=== PATIENT | male | born 1965 | race Caucasian/White ===

== ENCOUNTER 2022-05-31 20:53 | Inpatient (IN) | payer MEDICAID ==
[~2022-05-31] VITALS: Ht 162.6 cm; Wt 104.3 kg
[2022-05-31 21:02] VITALS: BP_SYST 146
--- NOTE | 2022-05-31 21:25 | NUR ---
COVID SWAB SENT TO LAB.
[2022-05-31 21:54] LABS: BASOPHILS % (AUTO) 0.3 % (0.0-2.0)
[2022-05-31 22:00] LABS: BASOPHILS # (AUTO) 0.1 K/uL (0.0-0.2); HEMATOCRIT 45.5 % (36-54); LYMPHOCYTES % (AUTO) 10.9 % (20.5-51.5); MEAN CORPUSCULAR VOLUME 90 fL (79.0-98.0); MONOCYTES # (AUTO) 0.8 K/uL (0.0-1.0); MONOCYTES % (AUTO) 4.5 % (1.7-9.3); NEUTROPHILS # (AUTO) 15.2 K/uL (1.8-7.7); NEUTROPHILS % (AUTO) 84.3 % (40.0-70.0); PLATELET COUNT (AUTO) 145 K/uL (130-430); RED BLOOD CELL COUNT(AUTO) 5.07 MIL/uL (4.2-6.2); RED CELL DISTRIBUTION WIDTH 15.8 % (9.0-15.0); WHITE BLOOD COUNT (AUTO) 18.1 K/uL (4.8-10.8)
[2022-05-31 22:04] LABS: ANION GAP 9 (5-15); CALCIUM 9.2 mg/dL (8.4-11.0); CHLORIDE 97 mmol/L (98-107); CREATININE 1.24 mg/dL (0.55-1.30); GLUCOSE 257 mg/dL (70-99); POTASSIUM 3.6 mmol/L (3.5-5.1); SODIUM SERUM 132 mmol/L (136-145); UREA NITROGEN, BLOOD 11 mg/dL (8-21)
[2022-05-31 22:13] LABS: ALANINE AMINOTRANSFERASE 80 U/L (12-78); ALBUMIN 3.3 g/dL (3.4-4.8); ASPARTATE AMINOTRANSFERASE 53 U/L (10-37); GFR AFRICAN AMERICAN 78 mL/min (>90); TOTAL BILIRUBIN 1.2 mg/dL (0.0-1.0)
[2022-05-31 22:14] LABS: PROTHROMBIN TIME 10.3 SECS (9.5-12.5)
[2022-05-31] MEDS ORDERED: cefTRIAXone 1 GM IVPB PREMIX 50 ML IV ONE (22:45)
[2022-05-31] MEDS ORDERED: NACL 0.9% 2,000 ML IV ONE (22:45)
[2022-05-31 23:34] LABS: BILIRUBIN,URINE NEGATIVE (NEGATIVE); BLOOD, URINE 3+ (NEGATIVE); CLARITY/URINE CLOUDY (CLEAR); COLOR,URINE RED (YELLOW); GLUCOSE,URINE 2+ (NEGATIVE); KETONES,URINE 1+ (NEGATIVE); LEUKOCYTE ESTERASE ,URINE 1+ (NEGATIVE); NITRITE, URINE POSITIVE (NEGATIVE); PROTEIN URINE 3+ (NEGATIVE)
[2022-05-31 23:44] LABS: RBC,URINE >100 /HPF (0-3)
[2022-05-31 23:45] LABS: BACTERIA,URINE MANY /HPF (None Seen)
[2022-05-31 23:46] LABS: MUCUS,URINE None Seen /LPF (None Seen)
[2022-06-01] MEDS ORDERED: D5/0.45 NS 1,000 ML IV SCH (00:30)
--- NOTE | 2022-06-01 00:36 | NUR ---
ADMIT BED Admit bed requested Patient will be admitted to care of . Admitted to unit. Diagnosis Inpatient (Yes or No) Observation (Yes or No) Orientation concerns or request close to nursing station (Yes or No) Covid Status On vent or bipap Isolation requirements Needs a sitter From Home (Yes or if No enter name of facility) Requires Dialysis (Yes or No) Med Rec Completed (Yes of No)
--- NOTE | 2022-06-01 05:00 | NUR ---
Admission Note Received patient from ER with diagnosis of UROSEPSIS. Initial Plan of Care discussed-patient verbalized understanding. Oriented to room, call light, pain management and safety.
[2022-06-01 05:48] VITALS: BP_SYST 113
[2022-06-01] MEDS ORDERED: NALOXONE HCL 0.4 MG/ML AMP (NARCAN) IVP PRN ×2 (06:30)
[2022-06-01] MEDS ORDERED: ACETAMINOPHEN 325 MG TABLET PO PRN ×2 (06:30→06:45)
[2022-06-01] MEDS ORDERED: HYDROcodone/ACETAMIN 5-325 MG TAB (NORCO/ VICODIN) PO PRN (06:30)
[2022-06-01] MEDS ORDERED: ONDANSETRON HCL 4 MG/2 ML VIAL IVP PRN (06:30)
[2022-06-01] MEDS ORDERED: HYDROcodone/ACETAMIN 10-325 MG TAB PO PRN (06:30)
--- NOTE | 2022-06-01 06:37 | NUR ---
CONSULTATION PAGED REASON FOR CONSULTATION:UTI WAS CONSULT CALLED?Y PERSON WHO WAS NOTIFIED:WEI CONSULTING PHYSICIAN:TRAMAINE BURTON ASSISTANT SPEECH LANGUAGE PATHOLOGIST SPECIALTY:INFECTIOUS DISEASE ASSISTANT SPEECH LANGUAGE PATHOLOGIST PHONE NUMBER:[phone] REQUESTING PHYSICIAN:MARTA NUNEZ
--- NOTE | 2022-06-01 07:35 | NUR ---
CLOSING NOTES Patient resting in bed - no s/s pain or distress noted. Respirations even and unlabored - head of bed elevated. IV site patent - no s/s redness infection or infiltration. Bed locked and in lowest position. Call light within reach bed alarm on.
[2022-06-01 08:00] VITALS: BP_SYST 156
[2022-06-01 08:43] LABS: BASOPHILS # (AUTO) 0.1 K/uL (0.0-0.2); BASOPHILS % (AUTO) 0.4 % (0.0-2.0); EOSINOPHILS % (AUTO) 0.2 % (0.0-4.0); HEMATOCRIT 41.8 % (36-54); LYMPHOCYTES # (AUTO) 2.2 K/uL (1.0-5.5); LYMPHOCYTES % (AUTO) 19.2 % (20.5-51.5); MEAN CORPUSCULAR VOLUME 90 fL (79.0-98.0); MONOCYTES # (AUTO) 0.7 K/uL (0.0-1.0); MONOCYTES % (AUTO) 5.7 % (1.7-9.3); NEUTROPHILS # (AUTO) 8.6 K/uL (1.8-7.7); NEUTROPHILS % (AUTO) 74.5 % (40.0-70.0); PLATELET COUNT (AUTO) 120 K/uL (130-430); RED BLOOD CELL COUNT(AUTO) 4.65 MIL/uL (4.2-6.2); WHITE BLOOD COUNT (AUTO) 11.5 K/uL (4.8-10.8)
[2022-06-01] MEDS ORDERED: METF-518 PO (08:53)
[2022-06-01] MEDS ORDERED: LINA5TAB2 PO (08:54)
[2022-06-01 08:56] LABS: CALCIUM 8.4 mg/dL (8.4-11.0); CREATININE 1.11 mg/dL (0.55-1.30); POTASSIUM 3.9 mmol/L (3.5-5.1)
[2022-06-01] MEDS ORDERED: BENA1TAB19 PO (08:56)
[2022-06-01] MEDS ORDERED: LIP20 PO (08:57)
--- NOTE | 2022-06-01 10:39 | NUR ---
CONSULTATION PAGED REASON FOR CONSULTATION:TRANSAMINITIS WAS CONSULT CALLED?Y PERSON WHO WAS NOTIFIED:ARNALDO CONSULTING PHYSICIAN:MAXX WALDEN (RIVERA DUGGAN ADAM DEWATERING FILTERING SUPERVISOR) ESTATE PLANNER SPECIALTY:GI ESTATE PLANNER PHONE NUMBER:[phone] REQUESTING PHYSICIAN:MARTA NUNEZ
[2022-06-01] MEDS: INSULIN REGULAR, HUMAN 100 UNITS/ML, 10 ML VIAL (humuLIN R) SUBCUT PRN ×3 (10:46→22:15)
[2022-06-01 11:34] LABS: ALBUMIN 2.8 g/dL (3.4-4.8); BILIRUBIN,DIRECT 0.4 mg/dL (0.0-0.3); TOTAL BILIRUBIN 1.4 mg/dL (0.0-1.0)
[2022-06-01 12:00] VITALS: BP_SYST 140
[2022-06-01] MEDS ORDERED: LISINOPRIL 10 MG TABLET (PRINIVIL) PO ONE (13:00)
[2022-06-01] MEDS ORDERED: HYDROCHLOROTHIAZIDE 12.5 MG CAPSULE (HCTZ) PO ONE (13:00)
[2022-06-01] MEDS: NORMAL SALINE 5 ML DISP.SYRIN IVF SCH ×2 (15:11→22:00)
[2022-06-01 16:20] VITALS: BP_SYST 146
--- NOTE | 2022-06-01 18:00 | NUR ---
A/Ox4,afebrile,vss,resting in bed,incontinent of pinkish urine,trisha care rendered,diaper changed,needs attended,call light & personal items within pt reach,safety maintained continue to monitor pt.
--- NOTE | 2022-06-01 20:00 | NUR ---
Recieved pt from AM nurse. Pt is aox4, parapelegic, skin intact, with discoloration on buttocks. Lungs are clear, BGL elevated t 322, bowel sounds present. Pt denies pain. Pt has US abd completed while performing primary assessment. Pt incontinent, and has had a BM on 06/01. Will continue to monitor pt VS and BGL. bed locked in lowest position with call light in reach.
[2022-06-01] MEDS: cefTRIAXone 1 GM IVPB PREMIX 50 ML IV SCH (20:58)
[2022-06-01] MEDS: ATORVASTATIN 20 MG TABLET PO SCH (20:58)
[2022-06-01] MEDS ORDERED: metFORMIN HCL 500 MG TABLET ONE (20:59)
[2022-06-01 21:21] VITALS: BP_SYST 100
[2022-06-01 21:25] VITALS: BP_SYST 100
[2022-06-02] VITALS: BP_SYST 98
[2022-06-02] MEDS: INSULIN REGULAR, HUMAN 100 UNITS/ML, 10 ML VIAL (humuLIN R) SUBCUT PRN ×4 (06:21→20:40)
[2022-06-02] MEDS: NORMAL SALINE 5 ML DISP.SYRIN IVF SCH ×3 (06:22→21:54)
[2022-06-02 06:46] LABS: BASOPHILS % (AUTO) 0.3 % (0.0-2.0); EOSINOPHILS # (AUTO) 0.1 K/uL (0.0-0.4); EOSINOPHILS % (AUTO) 1.1 % (0.0-4.0); HEMATOCRIT 38.5 % (36-54); LYMPHOCYTES # (AUTO) 1.4 K/uL (1.0-5.5); LYMPHOCYTES % (AUTO) 19.3 % (20.5-51.5); MEAN CORPUSCULAR VOLUME 91 fL (79.0-98.0); MONOCYTES # (AUTO) 0.5 K/uL (0.0-1.0); MONOCYTES % (AUTO) 6.8 % (1.7-9.3); NEUTROPHILS # (AUTO) 5.3 K/uL (1.8-7.7); NEUTROPHILS % (AUTO) 72.5 % (40.0-70.0); PLATELET COUNT (AUTO) 107 K/uL (130-430); RED BLOOD CELL COUNT(AUTO) 4.24 MIL/uL (4.2-6.2); WHITE BLOOD COUNT (AUTO) 7.4 K/uL (4.8-10.8)
[2022-06-02 07:45] LABS: ALBUMIN 2.5 g/dL (3.4-4.8); C-REACTIVE PROTEIN QUANT 14.8 mg/dL (0-0.5); CALCIUM 8.4 mg/dL (8.4-11.0); CREATININE 0.94 mg/dL (0.55-1.30); POTASSIUM 3.3 mmol/L (3.5-5.1); TOTAL BILIRUBIN 0.9 mg/dL (0.0-1.0)
[2022-06-02 08:12] LABS: ERYTHROCYTE SEDIMENTATION RATE 59 MM/HR (0-15)
[2022-06-02] MEDS: HYDROCHLOROTHIAZIDE 12.5 MG CAPSULE (HCTZ) PO SCH (08:55)
[2022-06-02] MEDS: LISINOPRIL 10 MG TABLET (PRINIVIL) PO SCH (08:55)
--- NOTE | 2022-06-02 09:26 | NUR ---
CANDELARIO CATH: #16 FR Candelario catheter with 10 cc bulb inserted with use of sterile technique. Bulb inflated with 10 cc sterile water. Immediate return of blood tinged urine noted. Bedside drainage bag placed below level of bladder.Pt tolerated procedure well.
[2022-06-02] MEDS ORDERED: POTASSIUM CHLORIDE 20 MEQ TAB.PRT.SR PO ONE (10:30)
[2022-06-02 12:00] VITALS: BP_SYST 101
[2022-06-02 16:08] VITALS: BP_SYST 100
--- NOTE | 2022-06-02 18:30 | NUR ---
A/Ox4,afebrile,vss,luther catheter drains pinkish red urine by gravity,irrigated with NS every 2 hrs-3 hrs until clear per urology consult order.incontinent of 2 large soft yellow BM,trisha care rendered,sacrum and both buttocks with skin peeling discolorations and wound in right ankle noted.wound care consult requested per protocol needs attended,hourly rounds made,safety maintained,continue to monitor pt.
[2022-06-02 19:44] VITALS: BP_SYST 155
[2022-06-02] MEDS: cefTRIAXone 1 GM IVPB PREMIX 50 ML IV SCH (20:23)
[2022-06-02] MEDS: ATORVASTATIN 20 MG TABLET PO SCH (20:36)
[2022-06-03] VITALS: BP_SYST 135
[2022-06-03] MEDS: INSULIN REGULAR, HUMAN 100 UNITS/ML, 10 ML VIAL (humuLIN R) SUBCUT PRN ×4 (06:01→21:37)
[2022-06-03 06:55] LABS: BASOPHILS % (AUTO) 0.5 % (0.0-2.0); EOSINOPHILS # (AUTO) 0.1 K/uL (0.0-0.4); HEMATOCRIT 37.6 % (36-54); LYMPHOCYTES # (AUTO) 1.7 K/uL (1.0-5.5); LYMPHOCYTES % (AUTO) 27.4 % (20.5-51.5); MEAN CORPUSCULAR VOLUME 90 fL (79.0-98.0); MONOCYTES # (AUTO) 0.7 K/uL (0.0-1.0); MONOCYTES % (AUTO) 10.5 % (1.7-9.3); NEUTROPHILS # (AUTO) 3.7 K/uL (1.8-7.7); NEUTROPHILS % (AUTO) 59.6 % (40.0-70.0); PLATELET COUNT (AUTO) 117 K/uL (130-430); RED BLOOD CELL COUNT(AUTO) 4.18 MIL/uL (4.2-6.2); RED CELL DISTRIBUTION WIDTH 16.3 % (9.0-15.0); WHITE BLOOD COUNT (AUTO) 6.2 K/uL (4.8-10.8)
[2022-06-03 07:07] LABS: C-REACTIVE PROTEIN QUANT 9.2 mg/dL (0-0.5); CREATININE 1.02 mg/dL (0.55-1.30); POTASSIUM 3.3 mmol/L (3.5-5.1)
[2022-06-03 07:20] VITALS: BP_SYST 121
[2022-06-03] MEDS: NORMAL SALINE 5 ML DISP.SYRIN IVF SCH ×2 (07:26→14:22)
--- NOTE | 2022-06-03 07:30 | NUR ---
OPEN NOTE Patient is lying in bed comfortably. No signs of any pain, sob,or any acute distress noted. LAC IV patent and on SL. No s/s any infiltration noted. Patient has Mclaughlin catheter draining to gravity yellow urine. Hand irrigation to be done later. All safety measures in place, side rails up bed locked in lowest position, call light within reach. All needs met at this time, will continue to monitor.
[2022-06-03] MEDS: LISINOPRIL 10 MG TABLET (PRINIVIL) PO SCH (08:32)
[2022-06-03] MEDS: HYDROCHLOROTHIAZIDE 12.5 MG CAPSULE (HCTZ) PO SCH (08:32)
--- NOTE | 2022-06-03 11:30 | NUR ---
IV IV to LAC came out. Re-inserted patient IV to RAC. Patient tolerated well. Patent and on SL.
--- NOTE | 2022-06-03 12:15 | NUR ---
Patient Round Patient is lying in bed comfortably. No signs of any pain, sob,or any acute distress noted. RAC IV patent and on SL. No s/s any infiltration noted. Patient has Mclaughlin catheter draining to gravity yellow urine. All safety measures in place, side rails up bed locked in lowest position, call light within reach. All needs met at this time, will continue to monitor.
[2022-06-03 12:29] LABS: ERYTHROCYTE SEDIMENTATION RATE 59 MM/HR (0-15)
--- NOTE | 2022-06-03 13:30 | NUR ---
ROOM TRANSFER Patient transferred to room 107B
[2022-06-03 13:57] VITALS: BP_SYST 141
[2022-06-03 17:31] VITALS: BP_SYST 119
--- NOTE | 2022-06-03 18:49 | NUR ---
CLOSING NOTE Patient is lying in bed comfortably. No signs of any pain, sob,or any acute distress noted. LAC IV patent and on SL. No s/s any infiltration noted. Patient has Mclaughlin catheter draining to gravity urine. All safety measures in place, side rails up bed locked in lowest position, call light within reach. All needs met at this time, will endorse to [facility] nurse.
[2022-06-03 20:00] VITALS: BP_SYST 136
[2022-06-03] MEDS: ATORVASTATIN 20 MG TABLET PO SCH (21:27)
[2022-06-03] MEDS: cefTRIAXone 1 GM IVPB PREMIX 50 ML IV SCH (21:27)
--- NOTE | 2022-06-03 22:49 | NUR ---
RECEIVED REPORT ON PATIENT FROM QUIN GOMEZ, ASSUMED CARE, AND STARTED ASSESSMENT. PATIENT IS AWAKE, ALERT AND ORIENTED X4. HE IS PLEASANT UPON APPROACH, ANSWERS QUESTIONS APPROPRIATELY, AND IS ABLE TO MAKE HIS NEEDS KNOWN. WILL CONTINUE TO MONITOR AND ASSESS FOR SAFETY AND COMFORT.
[2022-06-04] MEDS: INSULIN REGULAR, HUMAN 100 UNITS/ML, 10 ML VIAL (humuLIN R) SUBCUT PRN ×3 (07:16→17:38)
[2022-06-04 07:23] LABS: BASOPHILS % (AUTO) 0.3 % (0.0-2.0); EOSINOPHILS # (AUTO) 0.1 K/uL (0.0-0.4); LYMPHOCYTES # (AUTO) 1.9 K/uL (1.0-5.5); LYMPHOCYTES % (AUTO) 29.3 % (20.5-51.5); MEAN CORPUSCULAR VOLUME 91 fL (79.0-98.0); MONOCYTES # (AUTO) 0.7 K/uL (0.0-1.0); MONOCYTES % (AUTO) 11.6 % (1.7-9.3); NEUTROPHILS # (AUTO) 3.6 K/uL (1.8-7.7); NEUTROPHILS % (AUTO) 56.8 % (40.0-70.0); PLATELET COUNT (AUTO) 132 K/uL (130-430); RED CELL DISTRIBUTION WIDTH 15.5 % (9.0-15.0); WHITE BLOOD COUNT (AUTO) 6.4 K/uL (4.8-10.8)
[2022-06-04 07:43] LABS: ALBUMIN 2.6 g/dL (3.4-4.8); CALCIUM 9.1 mg/dL (8.4-11.0); POTASSIUM 3.5 mmol/L (3.5-5.1); TOTAL BILIRUBIN 0.7 mg/dL (0.0-1.0)
[2022-06-04 08:30] VITALS: BP_SYST 122
--- NOTE | 2022-06-04 08:30 | NUR ---
REPORT GIVEN TO AMANDA AND CARE WAS TURNED OVER TO HER.
--- NOTE | 2022-06-04 08:40 | NUR ---
Emptied 850mls of clear, straw-colored urine from Mclaughlin drainage bag. Patient stable.
[2022-06-04 09:02] LABS: ERYTHROCYTE SEDIMENTATION RATE 58 MM/HR (0-15)
--- NOTE | 2022-06-04 09:15 | NUR ---
Patient stable with Dr. Mimi Noble at bedside.
[2022-06-04] MEDS: HYDROCHLOROTHIAZIDE 12.5 MG CAPSULE (HCTZ) PO SCH (09:18)
[2022-06-04] MEDS: LISINOPRIL 10 MG TABLET (PRINIVIL) PO SCH (09:19)
--- NOTE | 2022-06-04 09:20 | NUR ---
Scheduled medications given per order. Patient stable; resting comfortably in bed at this time.
[2022-06-04] MEDS ORDERED: SULF1TAB48 PO (09:25)
--- NOTE | 2022-06-04 11:48 | NUR ---
DISCHARGE PLANNING Spoke with pt at bedside, states lives at home with family. Sister is his main caregiver thru [facility]. Pt is Paraplegic and WC bound, needs assist with transfers. Requires min to mod assist with adl's. Has hospital bed, wc, bedside table, & shower chair at home. Uses diapers at home. States was on [facility] then transferred over to home health in January for wound care on legs. Pt had recently finished with home health & dc'd from home health and starting back with [facility]. States wants to dc home with [facility], that they are coming to see him Tuesday. Called & verified with [facility], ph [phone] fax [phone], that pt was discharged from their services May 25 to go under hospice. States if does need home health will be able to accept. Called & spoke with Margie at [facility], ph [phone] fax [phone], states pt is under their services under Palliative Care. Will be able to accept & arrange transportation home, to fax order. Spoke with pt at bedside and states wants to go home under [facility] under Palliative Care. Called & updated Dr Noble and gave ph order. Faxed order/pt info to [facility].
--- NOTE | 2022-06-04 12:00 | NUR ---
Checked blood sugar: 194 mg/dl - will cover per sliding scale. Patient stable at this time. Addendum: 06/04/22 at 1412 by Charo Sr RN [id number]: Covered per sliding scale: 2 units
--- NOTE | 2022-06-04 12:13 | NUR ---
CREDIT REVIEW OFFICER received a referral to see pt. CREDIT REVIEW OFFICER introduced self to pt. at bedside. Pt. was soft spoken, cordial and a good historian. Pt. easily participated in this interview. Pt. stated she had been sober for about 13 years and admits to having a drinking problem. Pt. stated in 1999 he had a DUI and was required to participate in AA. in 2012 pt. stated he stopped drinking, but due to some recent stressors, he started drinking again. The last drink he had was on Tuesday and he drank a 12-pack of beer. In regards to a support system, pt. resides with his sister, has an ex- and daughter. Pt. states he has a friend who encouraged him accompany him to the [facility] in [place]. Pt. stated he likes it because he can be social, active and play games and participate in activities. Pt. utilizes [employer] for transportation. CREDIT REVIEW OFFICER asked if he knew of the [facility] Centers in this area. Pt. did. CREDIT REVIEW OFFICER asked if he has ever been diagnosed with depression. Pt. stated back in about 2016, pt. tried to kill himself by slitting his neck. Pt. stated he has taken anti-depressants for about 6 months time and found them to be helpful. Pt. denied feeling suicidal today or even recently. CREDIT REVIEW OFFICER asked pt. if he would go to see a Psychiatrist for an assessment. If they assess him as being depressed they can prescribe medication. CREDIT REVIEW OFFICER provided pt. with numerous resources including Mental Health Clinics, Substance Abuse and Alcohol Dependancy resources. Pt. thanked CREDIT REVIEW OFFICER and said he would begin to strengthen his support system.
--- NOTE | 2022-06-04 13:45 | NUR ---
Covered per sliding scale. D/C'd telemetry per order. Patient stable at this time. Patient states that his sister can pick him up after 5pm. Will notify CORNELIUS Mchugh.
[2022-06-04 14:44] VITALS: BP_SYST 138
[2022-06-04] MEDS: NORMAL SALINE 5 ML DISP.SYRIN IVF SCH (15:09)
--- NOTE | 2022-06-04 15:10 | NUR ---
Flushed IV per order. Patient resting comfortably in bed with no complaint of any pain. Stable. Addendum: 06/04/22 at 1513 by Charo Sr RN Emptied 450mls of clear, straw-colored urine from Mclaughlin drainage bag.
[2022-06-04 16:35] VITALS: BP_SYST 138
[2022-06-04 17:00] VITALS: BP_SYST 123
--- NOTE | 2022-06-04 17:30 | NUR ---
Checked blood sugar: 157 mg/dl - will cover per sliding scale. Patient stable. Addendum: 06/04/22 at 1803 by Charo Sr RN [id number]: Covered per sliding scale: 2 units.
--- NOTE | 2022-06-04 17:45 | NUR ---
Discharge instructions Both written and verbal discharge instructions given to patient. Encouraged to follow up with Primary Care Physician in 1 week and also follow up with in-network urologist as outpatient. Medication reconciliation given to patient. Advised to retrieve prescribed medication from preferred pharmacy. All questions and concerns were addressed. Patient verbalized understanding. Peripheral IV removed intact with no active bleeding; pressure dressing applied to site. Patient eating dinner at this time. Addendum: 06/04/22 at 1800 by Charo Sr RN Patient will be discharge with Mclaughlin catheter per doctor's order. Instructed how to clean the catheter; also how to empty and measure urine from drainage bag.
--- NOTE | 2022-06-04 18:40 | NUR ---
Discharge Patient taken to vehicle via wheelchair with all belongings. No distress noted at time of discharge.
== END 2022-06-04 17:45 | disposition home or self-care (01) | DRG 720 ==
LOC: SED 20:53 → STU 06-01 00:18
PROVIDERS: ADMIT Preventive Medicine Preventive Medicine/Occupational Environmental Medicine; ATTEND Preventive Medicine Preventive Medicine/Occupational Environmental Medicine
PROC: 0T9B70Z Drainage of Bladder with Drainage Device, Via Natural or Artificial Opening (ICD-10-PCS; principal; 2022-06-01)
DX: A41.9 Sepsis, unspecified organism (principal); E87.2 Acidosis; D69.6 Thrombocytopenia, unspecified; E44.0 Moderate protein-calorie malnutrition; E87.1 Hypo-osmolality and hyponatremia; E88.09 Other disorders of plasma-protein metabolism, not elsewhere classified; G82.20 Paraplegia, unspecified; N39.0 Urinary tract infection, site not specified; F10.20 Alcohol dependence, uncomplicated; I10 Essential (primary) hypertension; B96.20 Unspecified Escherichia coli [E. coli] as the cause of diseases classified elsewhere; B96.89 Other specified bacterial agents as the cause of diseases classified elsewhere; E87.6 Hypokalemia; R74.01 Elevation of levels of liver transaminase levels; R31.9 Hematuria, unspecified; Z20.822 Contact with and (suspected) exposure to COVID-19; E11.65 Type 2 diabetes mellitus with hyperglycemia; E66.9 Obesity, unspecified; Z68.39 Body mass index [BMI] 39.0-39.9, adult
CPT/HCPCS: 36415; 71045; 76376; 76700-TC; 80048; 80053; 80076; 81000; 82962; 83605; 84484; 85025; 85610-TC; 85651-TC; 85730-TC; 86140; 87040; 87086; 93005; 96365; 99291; G0378; J0696; J1815

== ENCOUNTER 2022-06-29 20:14 | Emergency (ER) | payer MEDICAID ==
[~2022-06-29] VITALS: Ht 162.6 cm; Wt 108.9 kg
[~2022-06-29 20:14] MED LIST: BENA1TAB19 PO; LINA5TAB2 PO; LIP20 PO; METF-518 PO; SULF1TAB48 PO
[2022-06-29 20:19] VITALS: BP_SYST 125
--- NOTE | 2022-06-29 20:22 | NUR ---
PATIENT STATES HE IS WHEELCHAIR BOUND AND HAD CANDELARIO PLACED ONE MONTH AGO AFTER HAVING HEMATURIA (F/U WITH UROLOGIST IS 07/02) BUT NOW THE CONNECTION PART FROM CANDELARIO TO BAG IS DISLODGED. NO OTHER COMPLAINTS.
--- NOTE | 2022-06-29 21:50 | NUR ---
Pt had a bm. Pt cleaned and new diaper was put on. pt provided gown and cleen blanket and sheets.
--- NOTE | 2022-06-29 22:30 | NUR ---
# 16 FR Luther catheter with use of sterile technique. Immediate return of 100 cc of urine noted. Bedside drainage bag placed below level of bladder. Urine sample collected and sent to lab. Pt tolerated procedure well. Patient arrived with luther in place, changed due to tubing disconnected at y port. Patient unable to toilet self.
[2022-06-29 22:48] LABS: BILIRUBIN,URINE NEGATIVE (NEGATIVE); BLOOD, URINE 3+ (NEGATIVE); COLOR,URINE YELLOW (YELLOW); GLUCOSE,URINE 1+ (NEGATIVE); KETONES,URINE TRACE (NEGATIVE); LEUKOCYTE ESTERASE ,URINE 3+ (NEGATIVE); NITRITE, URINE NEGATIVE (NEGATIVE); PROTEIN URINE 1+ (NEGATIVE); UROBILINOGEN,URINE 0.2 (0.2-1.0)
[2022-06-29 22:52] LABS: CLARITY/URINE TURBID (CLEAR)
[2022-06-29 23:03] LABS: BACTERIA,URINE FEW /HPF (None Seen)
[2022-06-29 23:04] LABS: MUCUS,URINE None Seen /LPF (None Seen)
--- NOTE | 2022-06-29 23:29 | NUR ---
Patient resting quietly. No acute distress noted. Vital signs within normal range.
[2022-06-30 01:20] LABS: ANION GAP 13 (5-15); CALCIUM 8.1 mg/dL (8.4-11.0); CHLORIDE 97 mmol/L (98-107); CREATININE 1.12 mg/dL (0.55-1.30); GLUCOSE 361 mg/dL (70-99); POTASSIUM 3.7 mmol/L (3.5-5.1); UREA NITROGEN, BLOOD 9 mg/dL (8-21)
[2022-06-30 01:26] LABS: GFR AFRICAN AMERICAN 87 mL/min (>90)
[2022-06-30 01:28] LABS: INR 0.9 (0.80-1.20); PROTHROMBIN TIME 9.8 SECS (9.5-12.5)
[2022-06-30 01:33] LABS: BASOPHILS # (AUTO) 0.2 K/uL (0.0-0.2); EOSINOPHILS % (AUTO) 0.1 % (0.0-4.0); HEMATOCRIT 38.1 % (36-54); HEMOGLOBIN 13.4 g/dL (14.0-18.0); LYMPHOCYTES # (AUTO) 2.1 K/uL (1.0-5.5); LYMPHOCYTES % (AUTO) 31.7 % (20.5-51.5); MEAN CORPUSCULAR HEMOGLOBIN 32 pg (27-31); MEAN CORPUSCULAR HGB CONC 35 % (32-36); MEAN CORPUSCULAR VOLUME 90 fL (79.0-98.0); MONOCYTES # (AUTO) 0.4 K/uL (0.0-1.0); MONOCYTES % (AUTO) 5.7 % (1.7-9.3); NEUTROPHILS # (AUTO) 3.9 K/uL (1.8-7.7); NEUTROPHILS % (AUTO) 59.5 % (40.0-70.0); PLATELET COUNT (AUTO) 124 K/uL (130-430); RED BLOOD CELL COUNT(AUTO) 4.24 MIL/uL (4.2-6.2); RED CELL DISTRIBUTION WIDTH 14.9 % (9.0-15.0); WHITE BLOOD COUNT (AUTO) 6.5 K/uL (4.8-10.8)
[2022-06-30 01:35] LABS: ALANINE AMINOTRANSFERASE 71 U/L (12-78); ALBUMIN 3.2 g/dL (3.4-4.8); ASPARTATE AMINOTRANSFERASE 32 U/L (10-37); TOTAL BILIRUBIN 0.8 mg/dL (0.0-1.0)
--- NOTE | 2022-06-30 01:55 | NUR ---
Patient resting quietly. No acute distress noted. Vital signs within normal range.
--- NOTE | 2022-06-30 02:40 | NUR ---
COVID SWAB SENT TO LAB.
--- NOTE | 2022-06-30 03:31 | NUR ---
Patient resting quietly. No acute distress noted. Vital signs within normal range.
--- NOTE | 2022-06-30 04:40 | NUR ---
Patient resting quietly. No acute distress noted. Vital signs within normal range.
--- NOTE | 2022-06-30 05:36 | NUR ---
Patient resting quietly. No acute distress noted. Vital signs within normal range.
[2022-06-30] MEDS ORDERED: NACL 0.9% 2,000 ML IV ONE (05:45)
[2022-06-30] MEDS ORDERED: cefTRIAXone 1 GM in D5W 50 ML IV ONE (05:45)
[2022-06-30 06:05] VITALS: BP_SYST 135
[2022-06-30] MEDS ORDERED: cefTRIAXone 1 GM VIAL ONE ×2 (06:08)
--- NOTE | 2022-06-30 07:35 | NUR ---
AWAITING PTS FAMILY TO MEDICAL SOCIAL WORKER PT. RESTING QUIETLY
--- NOTE | 2022-06-30 08:25 | NUR ---
PT STATES HE WILL BE CALLING HIS SISTER TO COME GET HIM.
--- NOTE | 2022-06-30 09:40 | NUR ---
SISTER HERE TO MEDICAL TRANSCRIPTIONIST PT. ASSISTED INTO CAR BY STAFF. PT LEFT AMA
== END 2022-06-30 09:40 | disposition left against medical advice (07) ==
LOC: SED 20:14
DX: N39.0 Urinary tract infection, site not specified (principal); R65.21 Severe sepsis with septic shock; R33.9 Retention of urine, unspecified; Z79.899 Other long term (current) drug therapy; Z20.822 Contact with and (suspected) exposure to COVID-19
CPT/HCPCS: 99285; 87426; 80053; 81000; 85025; 85610; 85730; 87040; 87086; 84484; 36415; 83605; 96365; 71045; 93005; J0696

== ENCOUNTER 2022-09-16 21:35 | Inpatient (IN) | payer MEDICAID ==
[~2022-09-16] VITALS: Ht 162.6 cm; Wt 103.9 kg
[2022-09-16 22:00] VITALS: BP_SYST 148
[2022-09-17] MEDS ORDERED: ACETAMINOPHEN 500 MG TABLET PO ONE (02:00)
[2022-09-17] MEDS ORDERED: NACL 0.9% 1,000 ML IV ONE (02:00)
[2022-09-17 02:31] LABS: BASOPHILS % (AUTO) 0.3 % (0.0-2.0); EOSINOPHILS % (AUTO) 0.3 % (0.0-4.0); HEMATOCRIT 46.1 % (36-54); HEMOGLOBIN 15.6 g/dL (14.0-18.0); LYMPHOCYTES # (AUTO) 1.7 K/uL (1.0-5.5); LYMPHOCYTES % (AUTO) 13.5 % (20.5-51.5); MEAN CORPUSCULAR HEMOGLOBIN 30 pg (27-31); MEAN CORPUSCULAR HGB CONC 34 % (32-36); MEAN CORPUSCULAR VOLUME 89 fL (79.0-98.0); MONOCYTES # (AUTO) 0.7 K/uL (0.0-1.0); MONOCYTES % (AUTO) 5.3 % (1.7-9.3); NEUTROPHILS % (AUTO) 80.6 % (40.0-70.0); PLATELET COUNT (AUTO) 213 K/uL (130-430); RED BLOOD CELL COUNT(AUTO) 5.21 MIL/uL (4.2-6.2); RED CELL DISTRIBUTION WIDTH 15.1 % (9.0-15.0); WHITE BLOOD COUNT (AUTO) 12.4 K/uL (4.8-10.8)
[2022-09-17 02:43] LABS: CALCIUM 9.1 mg/dL (8.4-11.0); CREATININE 1.25 mg/dL (0.55-1.30)
[2022-09-17 02:50] LABS: ALBUMIN 3.3 g/dL (3.4-4.8)
[2022-09-17 03:17] LABS: CLARITY/URINE CLOUDY (CLEAR); COLOR,URINE YELLOW (YELLOW); GLUCOSE,URINE 1+ (NEGATIVE); PH,URINE 8.5 (5.0-8.0); PROTEIN URINE 1+ (NEGATIVE)
[2022-09-17 03:18] LABS: BILIRUBIN,URINE NEGATIVE (NEGATIVE); BLOOD, URINE 1+ (NEGATIVE); KETONES,URINE NEGATIVE (NEGATIVE); LEUKOCYTE ESTERASE ,URINE 3+ (NEGATIVE); NITRITE, URINE POSITIVE (NEGATIVE); UROBILINOGEN,URINE 0.2 (0.2-1.0)
[2022-09-17 03:21] LABS: WBC,URINE >100 /HPF (0-3)
[2022-09-17 03:22] LABS: BACTERIA,URINE MANY /HPF (None Seen)
[2022-09-17] MEDS ORDERED: cefTRIAXone 2 GM VIAL IM ONE (03:45)
[2022-09-17] MEDS: 0.45% NACL 1,000 ML IV SCH ×2 (05:39→21:24)
[2022-09-17] MEDS ORDERED: PIPERACILLIN/TAZOBACTAM 3.375 GM/VIAL (ZOSYN) IV ONE (06:08)
[2022-09-17] MEDS: PIPERACILLIN/TAZO 3.375/DEX-IS 50 ML IV SCH ×4 (06:15→23:29)
[2022-09-17] MEDS ORDERED: HYDROcodone/ACETAMIN 5-325 MG TAB (NORCO/ VICODIN) PO PRN (15:00)
[2022-09-17] MEDS: ACETAMINOPHEN 500 MG TABLET PO PRN (21:58)
[2022-09-17] MEDS: INSULIN REGULAR, HUMAN 100 UNITS/ML, 3 ML VIAL (humuLIN R) SUBCUT PRN (22:04)
[2022-09-18 05:37] LABS: BASOPHILS % (AUTO) 0.2 % (0.0-2.0); EOSINOPHILS # (AUTO) 0.1 K/uL (0.0-0.4); EOSINOPHILS % (AUTO) 0.8 % (0.0-4.0); HEMATOCRIT 38.4 % (36-54); HEMOGLOBIN 13.2 g/dL (14.0-18.0); LYMPHOCYTES # (AUTO) 2.3 K/uL (1.0-5.5); LYMPHOCYTES % (AUTO) 30.9 % (20.5-51.5); MEAN CORPUSCULAR HEMOGLOBIN 31 pg (27-31); MEAN CORPUSCULAR HGB CONC 34 % (32-36); MEAN CORPUSCULAR VOLUME 89 fL (79.0-98.0); MONOCYTES # (AUTO) 0.6 K/uL (0.0-1.0); MONOCYTES % (AUTO) 7.6 % (1.7-9.3); NEUTROPHILS # (AUTO) 4.4 K/uL (1.8-7.7); NEUTROPHILS % (AUTO) 60.5 % (40.0-70.0); PLATELET COUNT (AUTO) 136 K/uL (130-430); RED CELL DISTRIBUTION WIDTH 15.4 % (9.0-15.0); WHITE BLOOD COUNT (AUTO) 7.3 K/uL (4.8-10.8)
[2022-09-18] MEDS: PIPERACILLIN/TAZO 3.375/DEX-IS 50 ML IV SCH ×3 (06:04→18:01)
[2022-09-18 06:17] LABS: CALCIUM 8.7 mg/dL (8.4-11.0); CREATININE 0.84 mg/dL (0.55-1.30); TOTAL BILIRUBIN 1.3 mg/dL (0.0-1.0)
[2022-09-18] MEDS: INSULIN REGULAR, HUMAN 100 UNITS/ML, 3 ML VIAL (humuLIN R) SUBCUT PRN ×3 (08:22→18:17)
[2022-09-18] MEDS: 0.45% NACL 1,000 ML IV SCH ×2 (08:24→22:33)
[2022-09-18] MEDS: ATORVASTATIN 20 MG TABLET PO SCH (10:57)
[2022-09-18] MEDS ORDERED: POTASSIUM CHLORIDE 20 MEQ TAB.PRT.SR PO ONE (13:00)
[2022-09-18] MEDS: LACTULOSE 20 GM/30 ML UDC PO PRN (16:53)
[2022-09-18] MEDS: ACETAMINOPHEN 500 MG TABLET PO PRN (22:48)
[2022-09-18] MEDS ORDERED: ACETAMINOPHEN 500 MG TABLET ONE (22:49)
[2022-09-19] MEDS: PIPERACILLIN/TAZO 3.375/DEX-IS 50 ML IV SCH ×4 (00:12→18:06)
[2022-09-19 07:12] LABS: BASOPHILS % (AUTO) 0.2 % (0.0-2.0); EOSINOPHILS % (AUTO) 0.6 % (0.0-4.0); HEMATOCRIT 37.9 % (36-54); LYMPHOCYTES # (AUTO) 2.1 K/uL (1.0-5.5); LYMPHOCYTES % (AUTO) 28.6 % (20.5-51.5); MEAN CORPUSCULAR HEMOGLOBIN 31 pg (27-31); MEAN CORPUSCULAR HGB CONC 34 % (32-36); MEAN CORPUSCULAR VOLUME 89 fL (79.0-98.0); MONOCYTES # (AUTO) 0.5 K/uL (0.0-1.0); MONOCYTES % (AUTO) 7.3 % (1.7-9.3); NEUTROPHILS # (AUTO) 4.6 K/uL (1.8-7.7); NEUTROPHILS % (AUTO) 63.3 % (40.0-70.0); PLATELET COUNT (AUTO) 121 K/uL (130-430); RED BLOOD CELL COUNT(AUTO) 4.25 MIL/uL (4.2-6.2); RED CELL DISTRIBUTION WIDTH 15.8 % (9.0-15.0); WHITE BLOOD COUNT (AUTO) 7.3 K/uL (4.8-10.8)
[2022-09-19 07:33] LABS: CALCIUM 8.5 mg/dL (8.4-11.0); CREATININE 0.78 mg/dL (0.55-1.30)
[2022-09-19] MEDS: INSULIN REGULAR, HUMAN 100 UNITS/ML, 3 ML VIAL (humuLIN R) SUBCUT PRN ×4 (10:17→23:10)
[2022-09-19] MEDS: 0.45% NACL 1,000 ML IV SCH ×2 (10:18→23:25)
[2022-09-19] MEDS: ATORVASTATIN 20 MG TABLET PO SCH (11:49)
[2022-09-19 15:26] VITALS: BP_SYST 138
[2022-09-19 16:00] VITALS: BP_SYST 156
[2022-09-19 20:00] VITALS: BP_SYST 136
[2022-09-20] VITALS (7 sets, daily range): BP systolic 131–146
[2022-09-20] MEDS: PIPERACILLIN/TAZO 3.375/DEX-IS 50 ML IV SCH ×4 (00:45→17:36)
[2022-09-20 06:10] LABS: BASOPHILS % (AUTO) 0.3 % (0.0-2.0); EOSINOPHILS % (AUTO) 0.8 % (0.0-4.0); HEMATOCRIT 35.6 % (36-54); HEMOGLOBIN 12.3 g/dL (14.0-18.0); LYMPHOCYTES # (AUTO) 2.1 K/uL (1.0-5.5); LYMPHOCYTES % (AUTO) 32.8 % (20.5-51.5); MEAN CORPUSCULAR HEMOGLOBIN 31 pg (27-31); MEAN CORPUSCULAR HGB CONC 35 % (32-36); MEAN CORPUSCULAR VOLUME 89 fL (79.0-98.0); MONOCYTES # (AUTO) 0.5 K/uL (0.0-1.0); MONOCYTES % (AUTO) 8.1 % (1.7-9.3); NEUTROPHILS # (AUTO) 3.7 K/uL (1.8-7.7); PLATELET COUNT (AUTO) 115 K/uL (130-430); RED BLOOD CELL COUNT(AUTO) 3.98 MIL/uL (4.2-6.2); RED CELL DISTRIBUTION WIDTH 15.3 % (9.0-15.0); WHITE BLOOD COUNT (AUTO) 6.4 K/uL (4.8-10.8)
[2022-09-20 06:27] LABS: CALCIUM 8.6 mg/dL (8.4-11.0); CREATININE 0.73 mg/dL (0.55-1.30)
[2022-09-20] MEDS: ATORVASTATIN 20 MG TABLET PO SCH (08:15)
[2022-09-20] MEDS: 0.45% NACL 1,000 ML IV SCH ×2 (12:03→21:15)
[2022-09-20] MEDS: INSULIN REGULAR, HUMAN 100 UNITS/ML, 3 ML VIAL (humuLIN R) SUBCUT PRN ×3 (12:13→21:23)
[2022-09-20] MEDS: ACETAMINOPHEN 500 MG TABLET PO PRN (21:14)
[2022-09-21] MEDS: PIPERACILLIN/TAZO 3.375/DEX-IS 50 ML IV SCH ×5 (00:08→23:56)
[2022-09-21 01:23] VITALS: BP_SYST 147
[2022-09-21] MEDS: INSULIN REGULAR, HUMAN 100 UNITS/ML, 3 ML VIAL (humuLIN R) SUBCUT PRN ×4 (06:57→20:36)
[2022-09-21 08:00] VITALS: BP_SYST 135
[2022-09-21] MEDS: ATORVASTATIN 20 MG TABLET PO SCH (08:14)
[2022-09-21 11:36] VITALS: BP_SYST 132
[2022-09-21] MEDS: 0.45% NACL 1,000 ML IV SCH (12:15)
[2022-09-21] MEDS ORDERED: BALSAM PERU/CASTOR OIL 56.7 GM OINT...G. TP ONE (16:15)
[2022-09-21 16:36] VITALS: BP_SYST 149
[2022-09-21 20:00] VITALS: BP_SYST 156
[2022-09-21] MEDS: LACTULOSE 20 GM/30 ML UDC PO PRN (22:40)
[2022-09-22 02:38] VITALS: BP_SYST 152
[2022-09-22] MEDS: 0.45% NACL 1,000 ML IV SCH ×2 (03:56→18:08)
[2022-09-22] MEDS: PIPERACILLIN/TAZO 3.375/DEX-IS 50 ML IV SCH ×3 (05:19→18:04)
[2022-09-22] MEDS: INSULIN REGULAR, HUMAN 100 UNITS/ML, 3 ML VIAL (humuLIN R) SUBCUT PRN ×3 (06:14→18:15)
[2022-09-22 08:00] VITALS: BP_SYST 142
[2022-09-22] MEDS ORDERED: BALSAM PERU/CASTOR OIL 56.7 GM OINT...G. TP SCH (09:00)
[2022-09-22] MEDS: ATORVASTATIN 20 MG TABLET PO SCH (09:47)
[2022-09-22 12:00] VITALS: BP_SYST 148
[2022-09-22] MEDS ORDERED: AMOX-423 PO (12:28)
[2022-09-22 16:45] VITALS: BP_SYST 134
[2022-09-22 16:50] VITALS: BP_SYST 145
== END 2022-09-22 23:23 | disposition home health service (06) | DRG 466 ==
LOC: SED 21:35 → STU 09-17 04:43 → SMU 09-19 04:49 → STU 09-19 09:33 → SMU 09-19 12:50
PROVIDERS: ADMIT Internal Medicine; ATTEND Internal Medicine
PROC: 0T9B70Z Drainage of Bladder with Drainage Device, Via Natural or Artificial Opening (ICD-10-PCS; principal; 2022-09-17)
DX: T83.018A Breakdown (mechanical) of other urinary catheter, initial encounter (principal); A41.9 Sepsis, unspecified organism; E44.0 Moderate protein-calorie malnutrition; N40.0 Benign prostatic hyperplasia without lower urinary tract symptoms; E78.5 Hyperlipidemia, unspecified; E11.9 Type 2 diabetes mellitus without complications; I10 Essential (primary) hypertension; Y83.8 Other surgical procedures as the cause of abnormal reaction of the patient, or of later complication, without mention of misadventure at the time of the procedure; N39.0 Urinary tract infection, site not specified; Z20.822 Contact with and (suspected) exposure to COVID-19; Y92.89 Other specified places as the place of occurrence of the external cause; Z68.39 Body mass index [BMI] 39.0-39.9, adult
CPT/HCPCS: 36415; 76770; 80048; 80053; 81000; 82962; 83605; 85025; 87040; 87086; 96361; 96365; 96367; 96368; 96372; 99285; G0378; J0696; J1815; J2543; J7050

== ENCOUNTER 2022-10-04 02:55 | Emergency (ER) | payer MEDICAID ==
[~2022-10-04] VITALS: Ht 162.6 cm; Wt 104.3 kg
[~2022-10-04 02:55] MED LIST changes: +AMOX-423 PO
[2022-10-04 03:03] VITALS: BP_SYST 142
[2022-10-04] MEDS ORDERED: CIPR7.5D OT (04:01)
[2022-10-04 06:40] VITALS: BP_SYST 151
== END 2022-10-04 06:40 | disposition home or self-care (01) ==
LOC: SED 02:55
DX: T16.1XXA Foreign body in right ear, initial encounter (principal); E11.9 Type 2 diabetes mellitus without complications; I10 Essential (primary) hypertension; E78.5 Hyperlipidemia, unspecified; Z79.899 Other long term (current) drug therapy; W45.8XXA Other foreign body or object entering through skin, initial encounter; Y93.89 Activity, other specified; Y92.89 Other specified places as the place of occurrence of the external cause; Y99.8 Other external cause status
CPT/HCPCS: 99284